=== PATIENT | female | born 1980 | race Caucasian/White ===

== ENCOUNTER 2024-11-28 18:03 | Emergency (ER) | payer BC ==
[2024-11-28] MEDS ORDERED: Naloxone 2 MG/2 ML Syringe IVPUSH PRN (18:28)
[2024-11-28] MEDS: fentaNYL 100 MCG/2 ML SDV IVPUSH PRN (19:04)
[2024-11-28 19:53] LABS: APPEARANCE,URINE CLOUDY (CLEAR); BILIRUBIN,URINE NEGATIVE (NEGATIVE); COLOR,URINE YELLOW; GLUCOSE,URINE NEGATIVE (NEGATIVE); KETONES,URINE NEGATIVE (NEGATIVE); OCCULT BLOOD,URINE TRACE-LYSED (NEGATIVE); PROTEIN,URINE NEGATIVE (NEGATIVE); UROBILINOGEN,URINE 0.2 E.U./dL (0.2-1.0)
[2024-11-28 19:54] LABS: LEUKOCYTE ESTERASE,URINE TRACE (NEGATIVE); NITRITE,URINE NEGATIVE (NEGATIVE)
[2024-11-28 19:59] LABS: BASOPHILS ABSOLUTE AUTO 0.04 K/uL (0.02-0.10); BASOPHILS PERCENT AUTO 0.7 % (0.0-0.5); EOSINOPHILS PERCENT AUTO 3.7 % (1.0-5.0); HEMATOCRIT 38.6 % (37.0-47.0); HEMOGLOBIN 12.9 g/dL (11.5-16.5); LYMPHOCYTES ABSOLUTE AUTO 1.98 K/uL (1.50-4.00); LYMPHOCYTES PERCENT AUTO 36.9 % (20.0-40.0); MEAN CORPUSCULAR HGB CONC 33.4 g/dL (31.0-35.0); MEAN CORPUSCULAR VOLUME 87 fL (76-96); MEAN PLATELET VOLUME 9.5 fL (6.0-10.0); MONOCYTES ABSOLUTE AUTO 0.65 K/uL (0.20-0.80); MONOCYTES PERCENT AUTO 12.1 % (3.0-10.0); NEUTROPHILS PERCENT AUTO 46.6 % (45.0-70.0); PLATELET COUNT,PLT 277 K/uL (150-500); RED BLOOD CELL COUNT 4.45 M/uL (3.80-5.80); WHITE BLOOD CELL COUNT,WBC 5.4 K/uL (4.0-11.0)
[2024-11-28] MEDS ORDERED: traMADol 50 MG Tab ONE (20:00)
[2024-11-28 20:10] LABS: LIPASE 50 U/L (16-77)
[2024-11-28 20:12] LABS: A/G RATIO 0.9 (0.8-2.0); ALBUMIN 3.5 g/dL (3.4-5.0); ANION GAP 13.5 mmol/L (5.0-15.0); BILIRUBIN TOTAL 0.2 mg/dL (0.0-1.0); BUN/CREATININE RATIO 14.9 (6-25); CALCIUM 8.7 mg/dL (8.5-10.1); CARBON DIOXIDE,CO2 26.1 mmol/L (21.0-32.0); CREATININE 0.94 mg/dL (0.55-1.02); EST CRCL DRUG DOSING (CG) 73.5 mL/min; POTASSIUM,K 3.6 mmol/L (3.5-5.1); PROTEIN TOTAL,TP 7.3 g/dL (6.4-8.2)
[2024-11-28 20:18] LABS: RBC,URINE 0-5 /HPF; SQUAMOUS EPITHELIAL CELLS,UR OCCASIONAL /HPF; WBC,URINE 0-5 /HPF
[2024-11-28 20:20] LABS: C-REACTIVE PROTEIN < 5.0 mg/L (<5.0)
== END 2024-11-28 20:35 | disposition home or self-care (01) ==
LOC: LB.ED 18:03
DX: R10.32 Left lower quadrant pain (principal); Z79.899 Other long term (current) drug therapy
CPT/HCPCS: 36415; 74176; 80053; 81001; 83690; 85025; 86140; 96374; 96376; 99284; 99284-25; A9270-GY; J3010